=== PATIENT | male | born 1985 | race Caucasian/White ===

== ENCOUNTER 2021-05-10 14:52 | Outpatient (CLI) | payer SELFPAY ==
[2021-05-10 16:41] LABS: PH Semen 8.5 (7.0-8.0); Volume Semen 2.5 mL (2-5)
[2021-05-10 16:42] LABS: Sperm Immotility 45 % (50-60); Sperm Non-Progressive Motility 5 % (5-10); Sperm Progressive Motility 50 % (31-34); Viscosity Semen High Viscosity; White Blood Count Semen 0-4 /hpf
[2021-05-10 16:43] LABS: Pathology Referral Yes
[2021-05-10 17:44] LABS: Side 1 106
[2021-05-10 17:45] LABS: Side 2 108; Side WITHIN 10% 2
== END 2021-05-10 14:53 | disposition home or self-care (01) ==
PROVIDERS: Visit Provider Obstetrics & Gynecology
DX: N46.9 Male infertility, unspecified (principal)
CPT/HCPCS: 80500; 89320

== ENCOUNTER → 2023-03-15 15:09 | Outpatient (BNVA) | payer BC, SELFPAY | PROVIDERS: Visit Provider Dermatology | DX: A63.0 Anogenital (venereal) warts (principal) | CPT/HCPCS: 17110; 99203 ==

== ENCOUNTER → 2023-04-03 16:01 | Outpatient (BNVA) | payer BC, SELFPAY | PROVIDERS: Visit Provider Nurse Practitioner Family | DX: A63.0 Anogenital (venereal) warts (principal); D22.62 Melanocytic nevi of left upper limb, including shoulder; L81.4 Other melanin hyperpigmentation; L82.1 Other seborrheic keratosis | CPT/HCPCS: 17110; 99213 ==